=== PATIENT | male | born 1965 | race Caucasian/White ===

== ENCOUNTER 2021-05-31 02:38 | Emergency (ER) | payer OTHER, SELFPAY ==
--- NOTE | ~2021-05-31 | XR_ITS ---
EXAMINATION: XR KNEE, LEFT CLINICAL INFORMATION: Pain since 2017 COMPARISON: None TECHNIQUE: Four views of the left knee. FINDINGS: No acute fracture or dislocation. Mild medial tibiofemoral compartment joint space narrowing. Small marginal osteophytes along the medial tibiofemoral and patellofemoral compartments. No significant joint effusion. Soft tissues unremarkable. XR/XR knee LT 4V IMPRESSION: No acute fracture or dislocation. Mild degenerative changes as described.
[2021-05-31 02:48] VITALS: BP 130/71; PULSE 94; RESP 20; TEMP 36.8; O2SAT 97; BMI 20.4
--- NOTE | 2021-05-31 03:56 | ED_ITS ---
HPI - Extremity Injury (Lower) General Chief Complaint: Extremity Injury, Lower Stated Complaint: Knee pain Time Seen by Provider: 05/31/21 03:35 Source: patient Mode of arrival: ambulatory Limitations: no limitations History of Present Illness HPI Narrative: Patient comes to the emergency room complaining of 2 days of left knee pain. Patient states that in 2006 he had a meniscus tear which required surgery. Patient states that after surgery he had been doing very well until 2 days ago. Patient denies any injury, no knee sprain. Patient states that the medial aspect of his left knee hurts quite a bit. Patient has been able to bear weight but it is very painful. Related Data Previous Rx's Medication Instructions Recorded ketorolac 10 mg tablet 10 mg PO TID PRN 5 Days #10 tab 05/31/21 Allergies Allergy/AdvReac Type Severity Reaction Status Date / Time tuberculin, purified protein Allergy Unknown UNKNOWN Verified 05/31/21 02:45 deriva [TUBERCULIN, PURIFIED PROTEIN DERIVA] Review of Systems Review of Systems: Constitutional : No Weight loss, No Fever, No Chills, No Night Sweats, No Fatigue, No Malaise ENT/Mouth : No Hearing loss, No Ear Pain, No Nasal Congestion, No Sinus Pain, No Hoarseness, No sore throat, No Rhinorrhea, No Swallowing Difficulty Eyes: No Eye Pain, No Swelling, No Redness, No Foreign Body, No Discharge, No Vision Changes Cardiovascular : No Chest Pain, No SOB, No Dyspnea on Exertion, No Orthopnea, No Edema, No Palpitations Respiratory : No Cough, No Sputum, No Wheezing, No Smoke Exposure, No Dyspnea Gastrointestinal : No Nausea, No Vomiting, No Diarrhea, No Constipation, No abdominal Pain, No Hematochezia, No Melena Genitourinary : no irregular bleeding, No Dysuria, No Urinary Frequency, No Hematuria, No Urinary Incontinence, No Urgency, No Flank Pain, No Urinary Flow Changes, No Hesitancy Musculoskeletal : Complaining of medial aspect pain of the left knee No Myalgias, No Joint Swelling Skin : No Skin Lesions, No rash Neuro : No Weakness, No Numbness, No Paresthesias, No Loss of Consciousness, No Dizziness, No Headache Psych : No Anxiety/Panic, No Depression, No SI/HI/AH/VH, No Social Issues, Heme/Lymph: No Bruising, No Bleeding,No Lymphadenopathy Endocrine : No Polyuria, No Polydipsia, No Temperature Intolerance [facility] Social History Social History Advance Directives: No Advance Directives Information Provided: Yes Physical Exam Vital Signs: Vital Signs: Last Vital Signs Temp 98.3 F 05/31/21 02:48 Pulse 94 05/31/21 02:48 Resp 20 05/31/21 02:48 BP 130/71 05/31/21 02:48 Pulse Ox 97 05/31/21 02:48 BMI result Body Mass Index 20.4 Const: Other: Appearance: Alert. Oriented X3. No acute distress. Eyes: Pupils equal, round and reactive to light. ENT: Pharynx normal. Neck: Normal inspection. Neck supple. No lymph nodes noted. No crepitus CVS: Normal heart rate and rhythm. Pulses normal. Normal S1 and S2 Respiratory: No respiratory distress. Breath sounds normal. No Wheezing. No rales Abdomen: Soft and nontender. No rigidity. No distention. good BS x4 Skin: Skin warm and dry. Normal skin color. Normal skin turgor. Extremities: No lower extremity edema. No erythema, patient is able to flex and extend the knee. Patient has pain to palpation over the medial aspect of the left knee, no effusion noted, patient is able to bear weight but walks lipping Neuro: Oriented X 3. No motor deficit. No sensory deficit. Moving all extermities. No slurred speech. Course Course Course Narrative: X-rays negative. I discussed with the patient he will likely need an MRI. Then he will likely need physical therapy versus surgery depending on the extent of the injury. Patient was provided with crutches, 1 dose of IM Toradol. Patient will follow-up with orthopedics. Discharge Plan Discharge Clinical Impression: Knee pain, left Patient Disposition: Home, Self-Care Instructions: Knee Pain (ED), Arthralgia (ED) Additional Instructions: Please follow-up with your primary care physician tomorrow. If you have any worsening or new symptoms, please return to the emergency room or call 911 Prescriptions: New ketorolac 10 mg tablet 10 mg PO TID PRN (Reason: pain) 5 Days Qty: 10 RF: 0 Referrals: Solo Gaffney PA-C [Physician [employer]] - 2 days
[2021-05-31] MEDS: Ketorolac Tromethamine 60 MG/2 ML VIAL IM (04:09)
== END 2021-05-31 04:26 | disposition home or self-care (01) ==
PROVIDERS: Emergency Provider Emergency Medicine; PCP Internal Medicine
DX: M25.562 Pain in left knee (principal)
CPT/HCPCS: 73564; 96372; 99283; 99284; J1885